=== PATIENT | female | born 1955 | race Caucasian/White ===

== ENCOUNTER 2017-04-25 14:54 | Emergency (ER) | payer OTHER ==
[2017-04-25 15:05] VITALS: O2SAT 97
--- NOTE | 2017-04-25 15:55 | ERPHSYRPT ---
- History of Present Illness Time Seen by Provider: 04/25/17 15:48 Source: patient Exam Limitations: no limitations Patient Subjective Stated Complaint: PT HERE FOR HYPERTENSION AT THE PAIN CLINIC , PT STATES SHE HAS HAD THE FLU FOR ALMOST MONTH, AND HAS NOT BEEN ABLE TO TAKE PAIN MEDS, AND IS NOW OUT OF PAIN MEDS, TOOK LAST DOSE A MONTH AGO, HAS BEEN EATING AND DRINKING OKAY THE LAST 5 DAYS Triage Nursing Assessment: PT ALERT, ARRIVED PER WC, RESP EASY, SKIN W/D PALE, WHICH PT SAYS IS NORMAL FOR HER, NO EDEMA NOTED Physician History: The patient is a 62-year-old female who was seen this afternoon at the pain clinic where she was being evaluated as a new patient. Her heart rate was elevated at the pain clinic and she was asked to come to the emergency room for evaluation. She denies chest pain or shortness of breath. Her pain management doctor for many years is retiring so she is coming to the new pain clinic for treatment. She states her pain started out as neuropathy. She has been out of her pain medicine for one month because she was sick with the "flu". She had vomiting and diarrhea. About a week ago she has been able to start eating food , first by taking liquids and now eating solid foods. She is feeling better. She thinks her elevated heart rate is simply due to stress. Her past medical history is significant for chronic pain. Timing/Duration: today Severity: mild Modifying Factors: Improves With: nothing Associated Symptoms: denies symptoms Allergies/Adverse Reactions: naproxen Adverse Reaction (Verified 04/25/17 15:05) Home Medications: Acetaminophen with Codeine [Tylenol with Codeine #4 Tablet] 1 ea QID 04/25/17 [ History] Oxycodone HCl/Acetaminophen [Percocet 5-325 mg Tablet] 1 ea QID 04/25/17 [ History] Hx Influenza Vaccination/Date Given: No Hx Pneumococcal Vaccination/Date Given: No Immunizations Up to Date: Yes - Review of Systems Constitutional: No Symptoms Eyes: No Symptoms Ears, Nose, & Throat: No Symptoms Respiratory: No Cough, No Dyspnea Cardiac: No Chest Pain, No Edema, No Syncope Abdominal/Gastrointestinal: No Abdominal Pain, No Nausea, No Vomiting, No Diarrhea Genitourinary Symptoms: No Dysuria Musculoskeletal: No Back Pain, No Neck Pain Skin: No Rash Neurological: No Dizziness, No Focal Weakness, No Sensory Changes Psychological: No Symptoms Endocrine: No Symptoms Hematologic/Lymphatic: No Symptoms Immunological/Allergic: No Symptoms All Other Systems: Reviewed and Negative - Past Medical History Pertinent Past Medical History: Yes Other Medical History: CHRONIC PAIN - Past Surgical History Past Surgical History: Yes Gastrointestinal: Exploratory Laparoscopy Other Surgical History: ORAL SURG, BREAST REDUCTION , ABD SURGERY, COSMETIC SURGERY - Social History Smoking Status: Never smoker Exposure to second hand smoke: No Drug Use: none Patient Lives Alone: No - Female History Hx Last Menstrual Period: HYSTER - Nursing Vital Signs Nursing Vital Signs: Initial Vital Signs Temperature 99.0 F 04/25/17 14:56 Pulse Rate 119 H 04/25/17 14:56 Respiratory Rate 16 04/25/17 14:56 Blood Pressure 129/91 04/25/17 14:56 O2 Sat by Pulse Oximetry 97 04/25/17 14:56 Pain Scale Pain Intensity 4 - Physical Exam General Appearance: no apparent distress, alert Eye Exam: PERRL/EOMI, eyes nml inspection Ears, Nose, Throat Exam: normal ENT inspection, TMs normal, pharynx normal, moist mucous membranes Neck Exam: normal inspection, non-tender, supple, full range of motion Respiratory Exam: normal breath sounds, lungs clear, No respiratory distress Cardiovascular Exam: tachycardia Gastrointestinal/Abdomen Exam: soft, normal bowel sounds, No tenderness, No mass Pelvic Exam: not done Rectal Exam: not done Back Exam: normal inspection, normal range of motion, No CVA tenderness, No vertebral tenderness Extremity Exam: normal inspection, normal range of motion, pelvis stable Neurologic Exam: alert, oriented x 3, cooperative, normal mood/affect, nml cerebellar function, nml station & gait, sensation nml, No motor deficits Skin Exam: normal color, warm, dry, No rash Lymphatic Exam: No adenopathy SpO2 Interpretation: normal SpO2: 97 Oxygen Delivery: Room Air - Course EKG Interpreted by Me: RATE, Sinus Tach, NORMAL AXIS, NORMAL INTERVALS, NORMAL QRS, NORMAL ST-T Ordered Tests: Active Orders 24 hr Category Date Time Status EKG-ER Only STAT Care 04/25/17 15:58 Active CBC W DIFF Stat Lab 04/25/17 16:26 Completed CMP Stat Lab 04/25/17 16:26 Completed TROPONIN Q3H Lab 04/25/17 16:26 Completed TROPONIN Q3H Lab 04/25/17 19:00 Ordered TROPONIN Q3H Lab 04/25/17 22:00 Ordered TROPONIN Q3H Lab 04/26/17 01:00 Ordered TROPONIN Q3H Lab 04/26/17 04:00 Ordered Lab/Rad Data: Laboratory Result Diagrams 04/25/17 16:26 04/25/17 16:26 Laboratory Results 04/25/17 04/25/17 04/25/17 Range/Units 16:26 16:26 16:26 WBC 8.0 (4.0-10.5) K/mm3 RBC 4.57 (4.1-5.4) M/mm3 Hgb 14.7 (12.0-16.0) gm/dl Hct 42.5 (35-47) % MCV 93.0 (78-100) fl MCH 32.2 H (26-32) pg MCHC 34.6 (32-36) g/dl RDW 12.6 (11.5-14.0) % Plt Count 378 (150-450) K/mm3 MPV 8.3 (6-9.5) fl Gran % 65.1 (36.0-66.0) % Lymphocytes % 23.8 L (24.0-44.0) % Monocytes % 9.9 (0.0-12.0) % Eosinophils % 0.9 (0.00-5.0) % Basophils % 0.3 (0.0-0.4) % Basophils # 0.02 (0-0.4) Sodium 142 (136-145) mEq/L Potassium 3.8 (3.5-5.1) mEq/L Chloride 106 (98-107) mEq/L Carbon Dioxide 26.7 (21-32) mEq/L Anion Gap 13.4 (5-15) MEQ/L BUN 11 (9-20) mg/dL Creatinine 0.74 (0.55-1.30) mg/dl Estimated GFR > 60 ML/MIN Glucose 111 H (70-110) MG/DL Calcium 9.2 (8.5-10.1) mg/dL Total Bilirubin 0.40 (0.2-1.0) mg/dL AST 10 L (15-37) U/L ALT 23 (12-78) U/L Alkaline Phosphatase 48 (46-116) U/L Troponin I < 0.017 (0.000-0.056) ng/ml Serum Total Protein 7.1 (6.4-8.2) gm/dL Albumin 3.8 (3.4-5.0) g/dL - Progress Progress: improved Counseled pt/family regarding: diagnosis - Departure Time of Disposition: 17:23 Departure Disposition: Home Clinical Impression: Tachycardia determined by examination of pulse Condition: Stable Critical Care Time: No Referrals: HENNY BRAGG [Primary Care Provider] - Additional Instructions: You have mild tachycardia or an elevated heart rate. All of your laboratory results were normal, including the CBC and electrolytes. Also the heart troponin level was normal. Follow-up as needed.
[2017-04-25 16:29] LABS: BASOPHIL % 0.3 % (0.0-0.4); Eosinophil % 0.9 % (0.00-5.0); Granulocytes % 65.1 % (36.0-66.0); Lymphocytes % 23.8 % (24.0-44.0); Mean Corpuscular Hemoglobin 32.2 pg (26-32); Mean Platelet Volume 8.3 fl (6-9.5); Monocytes % 9.9 % (0.0-12.0); Platelet Count 378 K/mm3 (150-450); Red Blood Count 4.57 M/mm3 (4.1-5.4); Red Cell Distribution Width 12.6 % (11.5-14.0)
[2017-04-25 17:05] LABS: ALBUMIN 3.8 g/dL (3.4-5.0); ALKALINE PHOSPHATASE 48 U/L (46-116); ANION GAP 13.4 MEQ/L (5-15); BLOOD UREA NITROGEN 11 mg/dL (9-20); CHLORIDE 106 mEq/L (98-107); Carbon Dioxide 26.7 mEq/L (21-32); Glucose 111 MG/DL (70-110); Potassium 3.8 mEq/L (3.5-5.1); SGOT/AST 10 U/L (15-37); SGPT/ALT 23 U/L (12-78); SODIUM 142 mEq/L (136-145); Total Protein 7.1 gm/dL (6.4-8.2)
[2017-04-25 17:26] VITALS: BP 146/104; PULSE 104
== END 2017-04-25 17:38 | disposition home or self-care (01) ==
LOC: ED 14:54
DX: R00.0 Tachycardia, unspecified (principal); Z79.899 Other long term (current) drug therapy; Z79.891 Long term (current) use of opiate analgesic
CPT/HCPCS: 36415; 80053; 84484; 85025; 93005; 99284